=== PATIENT | male | born 1995 ===

== ENCOUNTER 2022-03-16 15:14 | Emergency (ER) | payer SELFPAY ==
[~2022-03-16] VITALS: Ht 165.1 cm; Wt 63.5 kg
[2022-03-16] MEDS ORDERED: CEPH500 PO (16:27)
== END 2022-03-16 17:12 | disposition home or self-care (01) ==
LOC: ER 15:14
DX: L03.317 Cellulitis of buttock (principal)
CPT/HCPCS: 99283